=== PATIENT | female | born 1990 | race Caucasian/White ===

== ENCOUNTER 2017-07-25 13:19 | Emergency (ER) | payer OTHER ==
[~2017-07-25] VITALS: Ht 152.4 cm; Wt 46.7 kg
[~2017-07-25 13:19] MED LIST: (None)20 M1 PO; AZIT250 PO; CEPH500 PO; CODACE30 PO; CODACEE120 PO; CYCL10 PO; ERYES200SU PO; HYDACE5 PO; IBUP600 PO; Naprosyn500 MG PO; Pepcid20 MG PO; Prednisone20 MG PO; RXCODACET PO; RXPROM25 PO; Robaxin500 MG PO; SULTRIDS PO; Zofran4 MG PO
[2017-07-25] MEDS ORDERED: IBUP600 PO (14:15)
== END 2017-07-25 14:21 | disposition home or self-care (01) ==
LOC: ER 13:19
DX: M79.642 Pain in left hand (principal); Z88.0 Allergy status to penicillin; Z88.5 Allergy status to narcotic agent; F17.200 Nicotine dependence, unspecified, uncomplicated
CPT/HCPCS: 29125; 73130; 99283; L3917

== ENCOUNTER → 2017-08-10 | Outpatient (CLI) | payer OTHER ==
[~2017-08-10] MED LIST changes: +PRED20 PO
[2017-08-10 17:24] LABS: Influenza A Negative (NEGATIVE); Influenza B Negative (NEGATIVE)
== END ==
LOC: LAB 10:15
PROVIDERS: Nurse Practitioner Family
DX: R06.00 Dyspnea, unspecified (principal)
CPT/HCPCS: 87804

== ENCOUNTER 2017-12-21 16:11 | Emergency (ER) | payer OTHER ==
[~2017-12-21] VITALS: Ht 160 cm; Wt 47.6 kg
[~2017-12-21 16:11] MED LIST changes: -PRED20 PO
[2017-12-21] MEDS ORDERED: PRED20 PO (17:07)
== END 2017-12-21 17:34 | disposition home or self-care (01) ==
LOC: ER 16:11
DX: T63.441A Toxic effect of venom of bees, accidental (unintentional), initial encounter (principal); Z88.0 Allergy status to penicillin; Z88.5 Allergy status to narcotic agent; F17.210 Nicotine dependence, cigarettes, uncomplicated
CPT/HCPCS: 96372; 99283; J2930

== ENCOUNTER → 2021-07-13 | Outpatient (CLI) | payer OTHER ==
[~2021-07-13] MED LIST changes: +PRED20 PO
[2021-07-16 13:10] LABS: HPV 16 Negative (Negative); HPV 18 Negative (Negative); HPV OTHER HR TYPES Negative (Negative)
== END | disposition home or self-care (01) ==
LOC: LAB SHORT 16:14
PROVIDERS: Physician Assistant
DX: Z12.4 Encounter for screening for malignant neoplasm of cervix (principal); Z12.72 Encounter for screening for malignant neoplasm of vagina
CPT/HCPCS: 87624; G0123